=== PATIENT | female | born 1990 | race Caucasian/White ===

== ENCOUNTER 2017-04-30 17:44 | Emergency (ER) | payer MEDICAID ==
[~2017-04-30] VITALS: Ht 177.8 cm; Wt 153.2 kg
[2017-04-30 18:58] LABS: BASOPHILS % (AUTO) 0 % (0-1); EOSINOPHILS # (AUTO) 0.12 x10^3/uL (0-0.4); EOSINOPHILS % (AUTO) 2 % (1-7); LYMPHOCYTES # (AUTO) 0.77 x10^3/uL (1-3.4); LYMPHOCYTES % (AUTO) 12 % (22-44); MD NO; MEAN CORPUSCULAR HGB CONC 33.8 g/dL (32.4-35.8); MEAN CORPUSCULAR VOLUME 85.7 fL (80-100); MEAN PLATELET VOLUME 7.9 fL (7.4-10.4); MONOCYTES # (AUTO) 0.32 x10^3/uL (0.2-0.8); MONOCYTES % (AUTO) 5 % (2-9); NEUTROPHILS % (AUTO) 81 % (42-75); PLATELET COUNT 269 x10^3/uL (130-400); RED BLOOD COUNT 4.14 x10^6/uL (3.82-5.3); RED CELL DISTRIBUTION WIDTH 12.9 % (9.6-15.2)
[2017-04-30 18:59] LABS: ALANINE AMINOTRANSFERASE 53 U/L (12-78); ALBUMIN 3.1 g/dL (3.4-5.0); ANION GAP 8 mmol/L (5-15); CALCIUM 8.5 mg/dL (8.5-10.1); CHLORIDE 106 mmol/L (98-107); CREATININE 0.78 mg/dL (0.55-1.02)
[2017-04-30] MEDS ORDERED: SODIUM CHLORIDE 0.9% 1,000ML IVBOLUS ONE (19:00)
[2017-04-30] MEDS ORDERED: MORPHINE SULFATE 4 MG/ML, 1ML IVPush PRN ×2 (19:00→20:00)
[2017-04-30] MEDS ORDERED: SODIUM CHLORIDE FLUSH 10ML SYR IVF ONE (19:00)
[2017-04-30] MEDS ORDERED: ONDANSETRON 2MG/ML, 2ML IVPush ONE (19:00)
[2017-04-30 19:03] LABS: ALKALINE PHOSPHATASE 81 U/L (45-117); BILIRUBIN,TOTAL 0.3 mg/dL (0.2-1.0); TOTAL PROTEIN 7.2 g/dL (6.4-8.2)
[2017-04-30 19:20] LABS: MICROSCOPIC AUTO
[2017-04-30 19:23] LABS: CULTURE INDICATED? YES
[2017-04-30] MEDS ORDERED: [UNRECOGNIZED DRUG - REMARK] XX PRN (20:00)
[2017-04-30] MEDS ORDERED: ONDANSETRON 2MG/ML, 2ML ONE (21:01)
[2017-04-30 21:05] VITALS: BP 124/76
[2017-04-30] MEDS ORDERED: ACETAMINOPHEN 325 MG TABLET ONE (21:07)
[2017-04-30] MEDS ORDERED: ACETAMINOPHEN 325 MG TABLET PO ONE (21:30)
[2017-05-02 16:32] LABS: ANA SCREEN POSITIVE (Negative)
[2017-05-03 15:26] LABS: ANTI-NUCLEAR ANTIBODY PATTERN SPECKLED
== END 2017-04-30 21:23 | disposition home or self-care (01) ==
LOC: ED 21:17
DX: L51.9 Erythema multiforme, unspecified (principal)
CPT/HCPCS: 36415; 80053; 81001; 83690; 84703; 85025; 86038; 86039; 86308; 87081; 87086; 87880; 96361; 96374; 99284; J2405; J7030

== ENCOUNTER 2017-05-03 16:58 | Inpatient (IN) | payer MEDICAID ==
[~2017-05-03] VITALS: Ht 177.8 cm; Wt 152.1 kg
[2017-05-03] MEDS ORDERED: CITA20TA9 PO (17:53)
[2017-05-03] MEDS ORDERED: NORE-62 PO (17:53)
[2017-05-03] MEDS ORDERED: SODIUM CHLORIDE 0.9% 1,000 ML IV ONE ×2 (18:12→20:03)
[2017-05-03] MEDS ORDERED: methylPREDNISolone SOD SUCC 125 MG/2 ML IVP ONE (18:30)
[2017-05-03] MEDS ORDERED: SODIUM CHLORIDE FLUSH 10ML SYR IVF ONE (18:30)
[2017-05-03] MEDS ORDERED: methylPREDNISolone SOD SUCC 125 MG/2 ML ONE (19:08)
[2017-05-03] MEDS ORDERED: SODIUM CHLORIDE FLUSH 10ML SYR IVF PRN (20:30)
[2017-05-03] MEDS ORDERED: ACETAMINOPHEN 325 MG TABLET PO PRN (21:00)
[2017-05-03] MEDS ORDERED: ENALAPRILAT 1.25 MG/ML, 2ML IVPush PRN (21:00)
[2017-05-03] MEDS ORDERED: ONDANSETRON ODT 4 MG PO PRN (21:00)
[2017-05-03] MEDS ORDERED: TEMAZEPAM 15 MG CAPSULE PO PRN (21:00)
[2017-05-03 21:20] VITALS: BP 149/67
[2017-05-03 21:24] VITALS: BP 149/67
[2017-05-03] MEDS: SODIUM CHLORIDE 0.9% 1,000 ML IV SCH (21:42)
[2017-05-03] MEDS: CITALOPRAM 20 MG TABLET PO SCH (22:03)
[2017-05-04 02:05] VITALS: BP 144/74
[2017-05-04] MEDS: SODIUM CHLORIDE 0.9% 1,000 ML IV SCH ×3 (05:00→19:41)
[2017-05-04 07:53] VITALS: BP 126/82
[2017-05-04 08:32] LABS: TROPONIN I < 0.015 ng/mL (0.000-0.045)
[2017-05-04] MEDS ORDERED: HYDROmorphone 2 MG/ML, 1ML ONE (08:48)
[2017-05-04] MEDS: HYDROmorphone 2 MG/ML, 1ML IVPush PRN ×4 (08:53→23:14)
[2017-05-04] MEDS: NORETHINDRONE ETHINYL ESTRAD PO SCH (08:53)
[2017-05-04] MEDS: CITALOPRAM 20 MG TABLET PO SCH ×2 (08:53→21:50)
[2017-05-04] MEDS ORDERED: CITALOPRAM 20 MG TABLET PO SCH (09:00)
[2017-05-04] MEDS ORDERED: DIPHENHYDRAMINE 25 MG CAPSULE PO PRN (11:30)
[2017-05-04] MEDS: FAMOTIDINE 20 MG TABLET PO SCH ×2 (11:48→21:50)
[2017-05-04 14:22] VITALS: BP 120/72
[2017-05-04 14:57] VITALS: BP 138/91
[2017-05-04] MEDS: methylPREDNISolone SOD SUCC 125 MG/2 ML IVPush SCH ×2 (16:31→21:49)
[2017-05-04] MEDS: DIPHENHYDRAMINE 25 MG CAPSULE PO SCH ×2 (16:32→21:50)
[2017-05-04 17:27] LABS: ALANINE AMINOTRANSFERASE 58 U/L (12-78); ALBUMIN 3.2 g/dL (3.4-5.0); ANION GAP 8 mmol/L (5-15); CALCIUM 8.6 mg/dL (8.5-10.1); CHLORIDE 109 mmol/L (98-107)
[2017-05-04 17:30] LABS: ALKALINE PHOSPHATASE 74 U/L (45-117); BILIRUBIN,TOTAL 0.2 mg/dL (0.2-1.0); TOTAL PROTEIN 7.5 g/dL (6.4-8.2)
[2017-05-04 20:32] VITALS: BP 133/77
[2017-05-05 01:53] VITALS: BP 122/70
[2017-05-05] MEDS: DIPHENHYDRAMINE 25 MG CAPSULE PO SCH ×4 (04:17→22:41)
[2017-05-05] MEDS: HYDROmorphone 2 MG/ML, 1ML IVPush PRN ×6 (04:18→23:35)
[2017-05-05] MEDS: methylPREDNISolone SOD SUCC 125 MG/2 ML IVPush SCH ×4 (04:18→22:41)
[2017-05-05 05:06] LABS: MEAN CORPUSCULAR HEMOGLOBIN 29.1 pg (27.0-34.8); MEAN CORPUSCULAR HGB CONC 33.8 g/dL (32.4-35.8); MEAN CORPUSCULAR VOLUME 86.3 fL (80-100); MEAN PLATELET VOLUME 8.6 fL (7.4-10.4); PLATELET COUNT 218 x10^3/uL (130-400); RED BLOOD COUNT 3.83 x10^6/uL (3.82-5.3); RED CELL DISTRIBUTION WIDTH 13.8 % (9.6-15.2)
[2017-05-05 05:35] LABS: BASOPHILS % (AUTO) 0 % (0-1); EOSINOPHILS # (AUTO) 0.01 x10^3/uL (0-0.4); EOSINOPHILS % (AUTO) 0 % (1-7); LYMPHOCYTES # (AUTO) 0.91 x10^3/uL (1-3.4); LYMPHOCYTES % (AUTO) 9 % (22-44); MD SCAN; MONOCYTES # (AUTO) 0.46 x10^3/uL (0.2-0.8); MONOCYTES % (AUTO) 5 % (2-9); NEUTROPHILS # (AUTO) 8.55 x10^3/uL (1.8-6.8); NEUTROPHILS % (AUTO) 86 % (42-75)
[2017-05-05 07:29] VITALS: BP 136/81
[2017-05-05] MEDS: FAMOTIDINE 20 MG TABLET PO SCH ×2 (08:25→20:18)
[2017-05-05] MEDS: CITALOPRAM 20 MG TABLET PO SCH (08:25)
[2017-05-05] MEDS: NORETHINDRONE ETHINYL ESTRAD PO SCH (08:26)
[2017-05-05] MEDS: DOCUSATE 100 MG CAPSULE PO PRN (08:28)
[2017-05-05 14:18] VITALS: BP 145/76
[2017-05-05] MEDS: maalox/diphenh/lido/sucralfate 5 ML PO PRN (16:15)
[2017-05-05] MEDS: MAGNESIUM HYDROXIDE 8%, 30ML UDC PO PRN (16:15)
[2017-05-05 19:31] VITALS: BP 150/90
[2017-05-06 01:34] VITALS: BP 174/81
[2017-05-06] MEDS: HYDROmorphone 2 MG/ML, 1ML IVPush PRN ×3 (03:01→11:01)
[2017-05-06] MEDS: maalox/diphenh/lido/sucralfate 5 ML PO PRN ×3 (04:01→21:28)
[2017-05-06 04:06] VITALS: BP 164/98
[2017-05-06] MEDS: methylPREDNISolone SOD SUCC 125 MG/2 ML IVPush SCH ×3 (04:43→18:06)
[2017-05-06] MEDS: DIPHENHYDRAMINE 25 MG CAPSULE PO SCH ×3 (04:43→18:06)
[2017-05-06 07:09] VITALS: BP 166/97
[2017-05-06] MEDS: DOCUSATE 100 MG CAPSULE PO PRN ×2 (08:13→21:28)
[2017-05-06] MEDS: MAGNESIUM HYDROXIDE 8%, 30ML UDC PO PRN (08:13)
[2017-05-06] MEDS: FAMOTIDINE 20 MG TABLET PO SCH ×2 (08:14→21:28)
[2017-05-06] MEDS: NORETHINDRONE ETHINYL ESTRAD PO SCH (08:14)
[2017-05-06] MEDS: CITALOPRAM 20 MG TABLET PO SCH (08:14)
[2017-05-06 14:18] VITALS: BP 175/97
[2017-05-06] MEDS ORDERED: hydrOXyzine 10MG TABLET ONE (14:29)
[2017-05-06] MEDS: KETOROLAC 30 MG/1 ML IM PRN ×2 (14:43→21:28)
[2017-05-06] MEDS ORDERED: OMNIPAQUE 350 MG/ML, 100ML BOTTLE ONE (18:00)
[2017-05-06 18:17] VITALS: BP 135/75
[2017-05-07 01:06] VITALS: BP 133/79
[2017-05-07] MEDS: methylPREDNISolone SOD SUCC 125 MG/2 ML IVPush SCH ×3 (01:09→12:32)
[2017-05-07] MEDS: DIPHENHYDRAMINE 25 MG CAPSULE PO SCH ×3 (01:09→12:32)
[2017-05-07] MEDS: KETOROLAC 30 MG/1 ML IM PRN (06:06)
[2017-05-07 08:26] VITALS: BP 181/92
[2017-05-07] MEDS: NORETHINDRONE ETHINYL ESTRAD PO SCH (08:38)
[2017-05-07] MEDS: FAMOTIDINE 20 MG TABLET PO SCH (08:38)
[2017-05-07] MEDS: CITALOPRAM 20 MG TABLET PO SCH (08:38)
[2017-05-07 11:03] VITALS: BP 158/87
== END 2017-05-07 14:54 | disposition home or self-care (01) | DRG 596 ==
LOC: ED 18:17 → OBSVTOIN 20:03 → INTOOBSV 20:03 → EDIP 20:03 → 3NW 21:36
PROVIDERS: ADMIT Hospitalist; ATTEND Hospitalist
DX: L51.1 Stevens-Johnson syndrome (principal); E66.01 Morbid (severe) obesity due to excess calories; Z68.42 Body mass index [BMI] 45.0-49.9, adult; E11.9 Type 2 diabetes mellitus without complications; E28.2 Polycystic ovarian syndrome; T39.015A Adverse effect of aspirin, initial encounter; Y92.89 Other specified places as the place of occurrence of the external cause; F43.10 Post-traumatic stress disorder, unspecified; J45.909 Unspecified asthma, uncomplicated; Z80.1 Family history of malignant neoplasm of trachea, bronchus and lung; M79.1 Myalgia; R07.89 Other chest pain
CPT/HCPCS: 36415; 71275; 80053; 82962; 83735; 84484; 85025; 86430; 93005; 96374; J1170; J1885; Q0162; Q9967; J2930; J7030; J7512; Q0163; Q0177